=== PATIENT | male | born 1960 | race Caucasian/White ===

== ENCOUNTER 2019-02-16 09:12 | Emergency (ER) | payer OTHER ==
[~2019-02-16] VITALS: Ht 137.2 cm; Wt 60.5 kg
[2019-02-16 09:14] VITALS: BP 176/95; PULSE 71; RESP 18; Ht 137.2 cm; Wt 60.5 kg
--- NOTE | 2019-02-16 10:14 | ERD ---
ER Documentation Chief Complaint Chief Complaint sent by pcp for painful and frequent urination HPI 58-year-old male is here because he has had frequent urination usually at night for the past month. He has no dysuria or hematuria. He is awaiting appointment to see a urologist but that is not until March. Denies any pain. ROS All systems reviewed and are negative except as per history of present illness. Allergies Allergies: Coded Allergies: No Known Allergy (Unverified , 02/16/19) PMhx/Soc Medical and Surgical Hx: pt denies Surgical Hx History of Surgery: No Anesthesia Reaction: No Hx Neurological Disorder: No Hx Respiratory Disorders: No Hx Cardiac Disorders: Yes (HTN) Hx Psychiatric Problems: No Hx Alcohol Use: Yes (SOMETIMES) Hx Substance Use: No Hx Tobacco Use: No Smoking Status: Never smoker FmHx Family History: No diabetes Physical Exam Vitals Vital Signs Date Temp Pulse Resp B/P (MAP) Pulse Ox O2 O2 Flow FiO2 Time Delivery Rate 02/16/19 98.6 71 18 176/95 96 09:14 (122) Physical Exam INITIAL VITAL SIGNS: Reviewed by me GENERAL: Awake, alert and oriented x 4, well appearing, nontoxic, speaking in full sentences. No acute distress HEAD: Atraumatic RESPIRATORY: Clear to auscultation bilaterally. Symmetric chest wall rise. No wheezing or rales. No accessory muscle use. CV: Regular rate and rhythm. No murmurs, rubs, or gallops. ABDOMEN: Soft, non-distended. Nontender. Negative [place]. Negative [place] point tenderness. No CVA tenderness bilaterally. No guarding. No rebound. Results 24 hrs Laboratory Tests Test 02/16/19 09:39 02/16/19 09:40 Urine Color YELLOW Urine Clarity CLEAR Urine pH 7.0 Urine Specific [place] 1.012 Urine Ketones NEGATIVE mg/dL Urine Nitrite NEGATIVE mg/dL Urine Bilirubin NEGATIVE mg/dL Urine Urobilinogen NEGATIVE mg/dL Urine Leukocyte Esterase NEGATIVE [place]/ul Urine Hemoglobin NEGATIVE mg/dL Urine Glucose NEGATIVE mg/dL Urine Total Protein NEGATIVE mg/dl Bedside Glucose 129 mg/dL Procedures/MDM 58-year-old is here for urinary frequency. Patient Accu-Chek is unremarkable. Urinalysis is negative. Urine was sent for culture. Unclear etiology for symptoms. He should follow-up with his primary care doctor or urologist for full check and prostate check. Patient counseled regarding my diagnostic impression and care plan. Prior to discharge all questions answered. Pt agrees with treatment plan and understands strict return precautions. Pt is instructed to follow up with primary care provider within 24-48 hours. Precautionary instructions provided including instructions to return to the ER if not improving or for any worsening or changing symptoms or concerns. Departure Diagnosis: Primary Impression: Urinary frequency Condition: Stable Patient Instructions: Urinary Tract Infections in Men Additional Instructions: Llame al doctor MAANA y nunu beth LUZ PARA DENTRO DE 1-2 CASTELLANOS.Dgale a la secretaria que nosotros le instruimos hacer esta luz.Avise o llame si peralta condicin se empeora antes de la luz. Regresa aqui si peor o no mejor. BRADY FELDMAN PA-C Feb 16, 2019 10:14
== END 2019-02-16 10:20 | disposition home or self-care (01) ==
LOC: FTE 09:12
DX: R35.0 Frequency of micturition (principal); I10 Essential (primary) hypertension
CPT/HCPCS: 81003; 82962; 87086; Z7502; 99283